=== PATIENT | female | born 1965 | race Caucasian/White ===

== ENCOUNTER 2019-06-07 07:27 | Outpatient (CLI) | payer OTHER, SELFPAY ==
[2019-06-07 07:58] LABS: Add Urine Microscopic? NO; Appearance Urine Clear (Clear); Bilirubin Urine Negative (Negative); Blood Urine Negative (Negative); Color Urine Straw (Yellow); Glucose Urine UA Negative (Negative); Ketones Urine Negative (Negative); Leukocyte Esterase Ur Negative LEU/UL (NEGATIVE); Nitrate Urine Negative (Negative); Protein Urine Negative (Negative); Specific Grav Ur 1.014 (1.001-1.035); Urobilinogen Urine Negative mg/dL (<2.0)
[2019-06-07 08:08] LABS: Alanine Aminotransferase 23 U/L (4-35); Albumin Level 4.3 g/dL (3.5-5.1); Alkaline Phosphatase 33 U/L (38-126); Aspartate Amino Transferase 21 U/L (14-36); Bilirubin,Total 0.3 mg/dL (0.2-1.3); Blood Urea Nitrogen 14 mg/dL (7-17); Calcium 9.4 mg/dL (8.4-10.2); Carbon Dioxide 28 mmol/L (22-30); Chloride 104 mmol/L (98-107); Estimated Glomerular Filt Rate > 60; Glucose 102 mg/dL (65-105); Potassium 4.8 mmol/L (3.4-5.0); Sodium 140 mmol/L (137-145)
[2019-06-07 08:17] LABS: Hemoglobin A1C 5.8 % (<5.7)
== END 2019-06-07 07:28 | disposition home or self-care (01) ==
PROVIDERS: PCP Family Medicine; Visit Provider Physician Assistant
DX: E11.9 Type 2 diabetes mellitus without complications (principal); I10 Essential (primary) hypertension
CPT/HCPCS: 36415; 80053; 81003; 83036

== ENCOUNTER 2019-09-08 07:30 | Outpatient (CLI) | payer OTHER, SELFPAY ==
[2019-09-08 08:36] LABS: Alanine Aminotransferase 21 U/L (4-35); Albumin Level 4.6 g/dL (3.5-5.1); Alkaline Phosphatase 39 U/L (38-126); Aspartate Amino Transferase 23 U/L (14-36); Bilirubin,Total 0.5 mg/dL (0.2-1.3); Blood Urea Nitrogen 17 mg/dL (7-17); Calcium 9.8 mg/dL (8.4-10.2); Carbon Dioxide 30 mmol/L (22-30); Chloride 106 mmol/L (98-107); Estimated Glomerular Filt Rate > 60; Glucose 111 mg/dL (65-105); Potassium 5.2 mmol/L (3.4-5.0); Sodium 143 mmol/L (137-145)
[2019-09-08 08:38] LABS: Hemoglobin A1C 6.2 % (<5.7)
== END 2019-09-08 07:31 | disposition home or self-care (01) ==
PROVIDERS: PCP Family Medicine; Visit Provider Physician Assistant
DX: E11.9 Type 2 diabetes mellitus without complications (principal)
CPT/HCPCS: 36415; 80053; 83036

== ENCOUNTER 2019-12-14 07:48 | Outpatient (CLI) | payer OTHER, SELFPAY ==
[2019-12-14 08:29] LABS: Alanine Aminotransferase 24 U/L (4-35); Albumin Level 4.2 g/dL (3.5-5.1); Alkaline Phosphatase 33 U/L (38-126); Anion Gap 7 mmol/L (8-16); Aspartate Amino Transferase 22 U/L (14-36); Bilirubin,Total 0.5 mg/dL (0.2-1.3); Blood Urea Nitrogen 15 mg/dL (7-17); Calcium 9.5 mg/dL (8.4-10.2); Carbon Dioxide 29 mmol/L (22-30); Chloride 106 mmol/L (98-107); Estimated Glomerular Filt Rate > 60; Glucose 117 mg/dL (65-105); Potassium 4.4 mmol/L (3.4-5.0); Sodium 142 mmol/L (137-145)
== END 2019-12-14 07:49 | disposition home or self-care (01) ==
PROVIDERS: PCP Family Medicine; Visit Provider Physician Assistant
DX: E11.9 Type 2 diabetes mellitus without complications (principal)
CPT/HCPCS: 36415; 80053; 83036

== ENCOUNTER 2020-05-09 08:48 | Outpatient (CLI) | payer OTHER, SELFPAY ==
[2020-05-09 09:08] LABS: Hematocrit 37.8 % (37.0-47.0); Hemoglobin 12.2 g/dL (12.0-15.0); Mean Corpuscular HGB Conc 32.3 g/dl (32-36); Mean Corpuscular Hemoglobin 29.1 pg (26-34); Mean Corpuscular Volume 90.2 fl (80-100); Platelet Count Result 284 k/mm3 (150-375); Red Blood Count 4.19 M/mm3 (4.2-5.4); Red Cell Distribution Width 13.6 % (11.5-14.5); White Blood Count 5.1 K/mm3 (4.5-10.0)
[2020-05-09 09:14] LABS: Add Urine Microscopic? YES; Appearance Urine Cloudy (Clear); Bilirubin Urine Negative (Negative); Blood Urine Negative (Negative); Color Urine Yellow (Yellow); Glucose Urine UA Negative (Negative); Ketones Urine Negative (Negative); Leukocyte Esterase Ur Negative LEU/UL (NEGATIVE); Mucus Urine Rare /lpf; Nitrate Urine Negative (Negative); Protein Urine Negative (Negative); RBC Urine 0-2 /hpf (0-2); Specific Grav Ur 1.017 (1.001-1.035); Squamous Epithelial Cell Urine Many /hpf (Few); Urobilinogen Urine Negative mg/dL (<2.0); WBC Urine 0-3 /hpf (0-3)
[2020-05-09 09:24] LABS: Alanine Aminotransferase 15 U/L (4-35); Alkaline Phosphatase 27 U/L (38-126); Anion Gap 7 mmol/L (8-16); Aspartate Amino Transferase 21 U/L (14-36); Bilirubin,Total 0.4 mg/dL (0.2-1.3); Blood Urea Nitrogen 12 mg/dL (7-17); Calcium 8.7 mg/dL (8.4-10.2); Carbon Dioxide 28 mmol/L (22-30); Chloride 109 mmol/L (98-107); Cholesterol 114 mg/dL (0-200); Estimated Glomerular Filt Rate > 60; Glucose 115 mg/dL (65-105); HDL Direct 41 mg/dL; Sodium 144 mmol/L (137-145); Triglycerides 66 mg/dL (<150)
[2020-05-09 09:35] LABS: LDL Cholesterol Direct 52 mg/dL
[2020-05-09 10:03] LABS: Creatinine Urine 148.1 mg/dL
[2020-05-09 10:08] LABS: MALB Creatinine Ratio 5.3 mg/g (0-30); Microalbumin Urine Random 7.9 mg/L (0-16.7)
== END 2020-05-09 08:49 | disposition home or self-care (01) ==
PROVIDERS: PCP Family Medicine; Visit Provider Family Medicine
DX: E11.9 Type 2 diabetes mellitus without complications (principal); I10 Essential (primary) hypertension; E78.2 Mixed hyperlipidemia; I25.10 Atherosclerotic heart disease of native coronary artery without angina pectoris
CPT/HCPCS: 36415; 80053; 80061; 81001; 82043; 83036; 84443; 85027

== ENCOUNTER 2020-09-06 09:37 | Outpatient (CLI) | payer OTHER, SELFPAY ==
[2020-09-06 10:18] LABS: Alanine Aminotransferase 27 U/L (4-35); Albumin Level 4.4 g/dL (3.5-5.1); Alkaline Phosphatase 36 U/L (38-126); Anion Gap 8 mmol/L (8-16); Aspartate Amino Transferase 32 U/L (14-36); Bilirubin,Total 0.4 mg/dL (0.2-1.3); Blood Urea Nitrogen 13 mg/dL (7-17); Calcium 9.7 mg/dL (8.4-10.2); Carbon Dioxide 29 mmol/L (22-30); Chloride 107 mmol/L (98-107); Estimated Glomerular Filt Rate > 60; Glucose 119 mg/dL (65-105); Potassium 5.1 mmol/L (3.4-5.0); Sodium 144 mmol/L (137-145)
[2020-09-06 11:55] LABS: Hemoglobin A1C 6.4 % (<5.7)
== END 2020-09-06 09:38 | disposition home or self-care (01) ==
LOC: ANHLAB 09:41
PROVIDERS: PCP Family Medicine; Visit Provider Family Medicine
DX: E11.9 Type 2 diabetes mellitus without complications (principal)
CPT/HCPCS: 36415; 80053; 83036

== ENCOUNTER 2021-01-06 07:35 | Outpatient (CLI) | payer OTHER, SELFPAY ==
[2021-01-06 08:15] LABS: Alanine Aminotransferase 21 U/L (4-35); Albumin Level 4.3 g/dL (3.5-5.1); Alkaline Phosphatase 36 U/L (38-126); Anion Gap 7 mmol/L (8-16); Aspartate Amino Transferase 22 U/L (14-36); Bilirubin,Total 0.5 mg/dL (0.2-1.3); Blood Urea Nitrogen 12 mg/dL (7-17); Calcium 9.5 mg/dL (8.4-10.2); Carbon Dioxide 28 mmol/L (22-30); Chloride 105 mmol/L (98-107); Estimated Glomerular Filt Rate > 60; Glucose 130 mg/dL (65-110); Potassium 4.4 mmol/L (3.4-5.0); Sodium 140 mmol/L (137-145)
[2021-01-06 08:40] LABS: Hemoglobin A1C 6.5 % (<5.7)
== END 2021-01-06 07:36 | disposition home or self-care (01) ==
LOC: ANHLAB 07:37
PROVIDERS: PCP Family Medicine; Visit Provider Family Medicine
DX: E11.9 Type 2 diabetes mellitus without complications (principal)
CPT/HCPCS: 36415; 80053; 83036

== ENCOUNTER 2021-05-06 07:36 | Outpatient (CLI) | payer OTHER, SELFPAY ==
[2021-05-06 08:05] LABS: Add Urine Microscopic? NO; Appearance Urine Clear (Clear); Bilirubin Urine Negative (Negative); Blood Urine Negative (Negative); Color Urine Yellow (Yellow); Glucose Urine UA Negative (Negative); Ketones Urine Negative (Negative); Leukocyte Esterase Ur Negative LEU/UL (NEGATIVE); Nitrate Urine Negative (Negative); Protein Urine Negative (Negative); Specific Grav Ur 1.016 (1.001-1.035); Urobilinogen Urine Negative mg/dL (<2.0)
[2021-05-06 08:29] LABS: Hematocrit 38.6 % (37.0-47.0); Hemoglobin 12.5 g/dL (12.0-15.0); Mean Corpuscular HGB Conc 32.4 g/dl (32-36); Mean Corpuscular Hemoglobin 29.6 pg (26-34); Mean Corpuscular Volume 91.5 fl (80-100); Mean Platelet Volume 10.4 fl (7.4-10.4); Platelet Count Result 294 k/mm3 (150-375); Red Blood Count 4.22 M/mm3 (4.2-5.4); Red Cell Distribution Width 14.7 % (11.5-14.5); White Blood Count 7.1 K/mm3 (4.5-10.0)
[2021-05-06 08:29] LABS: Creatinine Urine 116.7 mg/dL
[2021-05-06 08:34] LABS: MALB Creatinine Ratio 6.3 mg/g (0-30); Microalbumin Urine Random 7.4 mg/L (0-16.7)
[2021-05-06 08:37] LABS: Alanine Aminotransferase 19 U/L (4-35); Albumin Level 4.4 g/dL (3.5-5.1); Alkaline Phosphatase 35 U/L (38-126); Anion Gap 8 mmol/L (8-16); Aspartate Amino Transferase 25 U/L (14-36); Bilirubin,Total 0.6 mg/dL (0.2-1.3); Blood Urea Nitrogen 11 mg/dL (7-17); Calcium 9.1 mg/dL (8.4-10.2); Carbon Dioxide 26 mmol/L (22-30); Chloride 106 mmol/L (98-107); Cholesterol 120 mg/dL (0-200); Estimated Glomerular Filt Rate > 60; Glucose 138 mg/dL (65-110); HDL Direct 43 mg/dL; Sodium 140 mmol/L (137-145); Triglycerides 61 mg/dL (<150)
[2021-05-06 08:39] LABS: Hemoglobin A1C 6.6 % (<5.7)
[2021-05-06 08:47] LABS: LDL Cholesterol Direct 60 mg/dL
== END 2021-05-06 07:37 | disposition home or self-care (01) ==
LOC: ANHLAB 07:37
PROVIDERS: PCP Family Medicine; Visit Provider Family Medicine
DX: E11.9 Type 2 diabetes mellitus without complications (principal); E78.5 Hyperlipidemia, unspecified; I11.9 Hypertensive heart disease without heart failure; I25.10 Atherosclerotic heart disease of native coronary artery without angina pectoris
CPT/HCPCS: 36415; 80053; 80061; 81003; 82043; 83036; 84443; 85027

== ENCOUNTER 2021-09-18 07:38 | Outpatient (CLI) | payer OTHER, SELFPAY ==
[2021-09-18 08:32] LABS: Hemoglobin A1C 6.6 % (<5.7)
[2021-09-18 08:49] LABS: Alanine Aminotransferase 24 U/L (6-35); Albumin Level 4.4 g/dL (3.5-5.1); Alkaline Phosphatase 46 U/L (38-126); Anion Gap 5 mmol/L (8-16); Aspartate Amino Transferase 23 U/L (14-36); Bilirubin,Total 0.3 mg/dL (0.2-1.3); Blood Urea Nitrogen 14 mg/dL (7-17); Calcium 9.1 mg/dL (8.4-10.2); Carbon Dioxide 27 mmol/L (22-30); Chloride 108 mmol/L (98-107); Estimated Glomerular Filt Rate > 60; Glucose 134 mg/dL (65-110); Sodium 140 mmol/L (137-145)
== END 2021-09-18 07:39 | disposition home or self-care (01) ==
LOC: ANHLAB 07:41
PROVIDERS: PCP Family Medicine; Visit Provider Family Medicine
DX: E11.9 Type 2 diabetes mellitus without complications (principal)
CPT/HCPCS: 36415; 80053; 83036

== ENCOUNTER 2022-02-24 07:23 | Outpatient (CLI) | payer OTHER, SELFPAY ==
[2022-02-24 07:58] LABS: Alanine Aminotransferase 38 U/L (6-35); Albumin Level 4.6 g/dL (3.5-5.1); Alkaline Phosphatase 44 U/L (38-126); Anion Gap 8 mmol/L (8-16); Aspartate Amino Transferase 34 U/L (14-36); Bilirubin,Total 0.5 mg/dL (0.2-1.3); Blood Urea Nitrogen 11 mg/dL (7-17); Calcium 9.4 mg/dL (8.4-10.2); Carbon Dioxide 29 mmol/L (22-30); Chloride 104 mmol/L (98-107); Estimated Glomerular Filt Rate > 60; Glucose 144 mg/dL (65-110); Potassium 4.6 mmol/L (3.4-5.0); Sodium 141 mmol/L (137-145)
[2022-02-24 08:00] LABS: Hemoglobin A1C 7.1 % (<5.7)
== END 2022-02-24 07:24 | disposition home or self-care (01) ==
LOC: ANHLAB 07:28
PROVIDERS: PCP Family Medicine; Visit Provider Family Medicine
DX: E11.9 Type 2 diabetes mellitus without complications (principal); I25.10 Atherosclerotic heart disease of native coronary artery without angina pectoris; I11.9 Hypertensive heart disease without heart failure
CPT/HCPCS: 36415; 80053; 83036

== ENCOUNTER 2022-07-21 06:46 | Outpatient (CLI) | payer MEDICARE, SELFPAY ==
[2022-07-21 07:33] LABS: Hematocrit 39.1 % (37.0-47.0); Hemoglobin 12.5 g/dL (12.0-15.0); Mean Corpuscular Hemoglobin 28.8 pg (26-34); Mean Corpuscular Volume 90.1 fl (80-100); Mean Platelet Volume 10.3 fl (7.4-10.4); Platelet Count Result 308 k/mm3 (150-375); Red Blood Count 4.34 M/mm3 (4.2-5.4); Red Cell Distribution Width 13.9 % (11.5-14.5); White Blood Count 6.5 K/mm3 (4.5-10.0)
[2022-07-21 07:44] LABS: Appearance Urine Cloudy (Clear); Bacteria Urine None Seen /hpf; Bilirubin Urine Negative (Negative); Blood Urine Negative (Negative); Color Urine Yellow (Yellow); Glucose Urine UA Negative (Negative); Ketones Urine Negative (Negative); Leukocyte Esterase Ur Negative LEU/UL (NEGATIVE); Nitrate Urine Negative (Negative); Non Pathogenic Casts 0-2; Protein Urine Negative (Negative); RBC Urine 0-2 /hpf (0-2); Specific Grav Ur 1.016 (1.001-1.035); Squamous Epithelial Cell Urine Moderate /hpf (Few); Urobilinogen Urine 0.2 mg/dL (<2.0); WBC Urine 0-5 /hpf (0-3); pH Urine 5.5 (5.0-9.0)
[2022-07-21 07:58] LABS: Alanine Aminotransferase 35 U/L (6-35); Albumin Level 4.5 g/dL (3.5-5.1); Alkaline Phosphatase 38 U/L (38-126); Anion Gap 8 mmol/L (8-16); Aspartate Amino Transferase 27 U/L (14-36); Bilirubin,Total 0.5 mg/dL (0.2-1.3); Blood Urea Nitrogen 10 mg/dL (7-17); Calcium 9.3 mg/dL (8.4-10.2); Carbon Dioxide 27 mmol/L (22-30); Chloride 102 mmol/L (98-107); Cholesterol 134 mg/dL (0-200); Estimated Glomerular Filt Rate > 60; Glucose 119 mg/dL (65-110); HDL Direct 46 mg/dL; Potassium 3.9 mmol/L (3.4-5.0); Sodium 137 mmol/L (137-145); Triglycerides 80 mg/dL (<150)
[2022-07-21 07:59] LABS: Add Urine Microscopic? YES
[2022-07-21 08:07] LABS: Creatinine Urine 123.5 mg/dL
[2022-07-21 08:09] LABS: LDL Cholesterol Direct 63 mg/dL
[2022-07-21 08:10] LABS: MALB Creatinine Ratio 12.6 mg/g (0-30); Microalbumin Urine Random 15.6 mg/L (0-16.7)
[2022-07-21 08:15] LABS: Hemoglobin A1C 6.3 % (<5.7)
== END 2022-07-21 06:47 | disposition home or self-care (01) ==
PROVIDERS: PCP Family Medicine; Visit Provider Family Medicine
DX: R53.83 Other fatigue (principal); E78.5 Hyperlipidemia, unspecified; I10 Essential (primary) hypertension; E11.9 Type 2 diabetes mellitus without complications
CPT/HCPCS: 36415; 80053; 80061; 81001; 82043; 83036; 84443; 85027

== ENCOUNTER 2022-12-09 06:59 | Outpatient (CLI) | payer MEDICARE, SELFPAY ==
[2022-12-09 08:09] LABS: Alanine Aminotransferase 23 U/L (6-35); Albumin Level 4.4 g/dL (3.5-5.1); Alkaline Phosphatase 39 U/L (38-126); Anion Gap 9 mmol/L (8-16); Aspartate Amino Transferase 25 U/L (14-36); Bilirubin,Total 0.6 mg/dL (0.2-1.3); Blood Urea Nitrogen 14 mg/dL (7-17); Calcium 9.2 mg/dL (8.4-10.2); Carbon Dioxide 27 mmol/L (22-30); Chloride 101 mmol/L (98-107); Estimated Glomerular Filt Rate > 60; Glucose 126 mg/dL (65-110); Potassium 4.4 mmol/L (3.4-5.0); Sodium 137 mmol/L (137-145)
[2022-12-09 08:15] LABS: Hemoglobin A1C 6.4 % (<5.7)
== END 2022-12-09 07:00 | disposition home or self-care (01) ==
LOC: ANHLAB 07:00
PROVIDERS: PCP Family Medicine; Visit Provider Family Medicine
DX: E11.9 Type 2 diabetes mellitus without complications (principal)
CPT/HCPCS: 36415; 80053; 83036

== ENCOUNTER 2023-04-20 06:56 | Outpatient (CLI) | payer MEDICARE, MEDICAID, SELFPAY ==
[2023-04-20 07:50] LABS: Alanine Aminotransferase 24 U/L (6-35); Albumin Level 4.3 g/dL (3.5-5.1); Alkaline Phosphatase 43 U/L (38-126); Anion Gap 7 mmol/L (8-16); Aspartate Amino Transferase 26 U/L (14-36); Bilirubin,Total 0.5 mg/dL (0.2-1.3); Blood Urea Nitrogen 12 mg/dL (7-17); Calcium 9.8 mg/dL (8.4-10.2); Carbon Dioxide 26 mmol/L (22-30); Chloride 101 mmol/L (98-107); Estimated Glomerular Filt Rate > 60; Glucose 130 mg/dL (65-110); Potassium 4.4 mmol/L (3.4-5.0); Sodium 134 mmol/L (137-145)
[2023-04-20 07:55] LABS: Hemoglobin A1C 6.7 % (<5.7)
== END 2023-04-20 06:57 | disposition home or self-care (01) ==
LOC: ANHLAB 06:59
PROVIDERS: PCP Family Medicine; Visit Provider Family Medicine
DX: E11.9 Type 2 diabetes mellitus without complications (principal)
CPT/HCPCS: 36415; 80053; 83036

== ENCOUNTER 2023-08-12 07:07 | Outpatient (CLI) | payer MEDICARE, MEDICAID, SELFPAY ==
[2023-08-12 07:58] LABS: Hematocrit 36.3 % (37.0-47.0); Hemoglobin 11.6 g/dL (12.0-15.0); Mean Corpuscular Hemoglobin 28.9 pg (26-34); Mean Corpuscular Volume 90.3 fl (80-100); Mean Platelet Volume 9.2 fl (7.4-10.4); Platelet Count Result 359 k/mm3 (150-375); Red Blood Count 4.02 M/mm3 (4.2-5.4); Red Cell Distribution Width 14.2 % (11.5-14.5); White Blood Count 6.6 K/mm3 (4.5-10.0)
[2023-08-12 08:13] LABS: Alanine Aminotransferase 18 U/L (6-35); Albumin Level 4.4 g/dL (3.5-5.1); Alkaline Phosphatase 39 U/L (38-126); Anion Gap 8 mmol/L (4-12); Aspartate Amino Transferase 20 U/L (14-36); Bilirubin,Total 0.6 mg/dL (0.2-1.3); Blood Urea Nitrogen 14 mg/dL (7-17); Calcium 9.4 mg/dL (8.4-10.2); Carbon Dioxide 23 mmol/L (22-30); Chloride 101 mmol/L (98-107); Cholesterol 156 mg/dL (0-200); Estimated Glomerular Filt Rate > 60; Glucose 123 mg/dL (65-110); HDL Direct 53 mg/dL; Potassium 4.3 mmol/L (3.4-5.0); Sodium 132 mmol/L (137-145); Triglycerides 100 mg/dL (<150)
[2023-08-12 08:14] LABS: Appearance Urine Clear (Clear); Bilirubin Urine Negative (Negative); Blood Urine Negative (Negative); Color Urine Yellow (Yellow); Glucose Urine UA Negative (Negative); Ketones Urine Negative (Negative); Leukocyte Esterase Ur Negative LEU/UL (Negative); Nitrate Urine Negative (Negative); Protein Urine Negative (Negative); Specific Grav Ur 1.023 (1.001-1.035); Urobilinogen Urine 0.2 mg/dL (<2.0); pH Urine 5.5 (5.0-9.0)
[2023-08-12 08:17] LABS: Rheumatoid Factor < 12.0 IU/ML (<12)
[2023-08-12 08:19] LABS: Add Urine Microscopic? NO
[2023-08-12 08:24] LABS: LDL Cholesterol Direct 79 mg/dL
[2023-08-12 08:34] LABS: Hemoglobin A1C 6.1 % (<5.7)
[2023-08-12 12:20] LABS: Creatinine Urine 112.6 mg/dL
[2023-08-12 12:34] LABS: MALB Creatinine Ratio 5.8 mg/g (0-30); Microalbumin Urine Random 6.5 mg/L (0-16.7)
[2023-08-13 14:42] LABS: Anti Cyclic Citrullinated Pept <16 UNITS
== END 2023-08-12 07:08 | disposition home or self-care (01) ==
LOC: ANHLAB 07:13
PROVIDERS: PCP Family Medicine; Visit Provider Family Medicine
DX: I11.9 Hypertensive heart disease without heart failure (principal); E78.5 Hyperlipidemia, unspecified; M25.50 Pain in unspecified joint; E11.9 Type 2 diabetes mellitus without complications
CPT/HCPCS: 36415; 80053; 80061; 81003; 82043; 83036; 84443; 85027; 86200; 86430

== ENCOUNTER 2023-12-28 07:00 | Outpatient (CLI) | payer MEDICARE, MEDICAID, SELFPAY ==
[2023-12-28 07:39] LABS: Anion Gap 9 mmol/L (4-12); Blood Urea Nitrogen 15 mg/dL (7-17); Carbon Dioxide 27 mmol/L (22-30); Chloride 98 mmol/L (98-107); Potassium 4.6 mmol/L (3.4-5.0); Sodium 134 mmol/L (137-145)
[2023-12-28 07:40] LABS: Alanine Aminotransferase 20 U/L (6-35); Albumin Level 4.6 g/dL (3.5-5.1); Alkaline Phosphatase 36 U/L (38-126); Aspartate Amino Transferase 25 U/L (14-36); Bilirubin,Total 0.6 mg/dL (0.2-1.3); Calcium 9.6 mg/dL (8.4-10.2); Estimated Glomerular Filt Rate > 60; Glucose 131 mg/dL (65-110)
[2023-12-28 07:50] LABS: Hemoglobin A1C 6.7 % (<5.7)
== END 2023-12-28 07:01 | disposition home or self-care (01) ==
PROVIDERS: PCP Family Medicine; Visit Provider Family Medicine
DX: E11.9 Type 2 diabetes mellitus without complications (principal)
CPT/HCPCS: 36415; 80053; 83036

== ENCOUNTER 2024-06-19 06:57 | Outpatient (CLI) | payer OTHER, SELFPAY ==
--- OUTSIDE RECORDS SUMMARY | 2024-06-19 07:00 | XMS_ITS | CONTINUITY OF CARE DOCUMENT ---
Author Name qamar foote Address Unknown Organization [facility] Address [address] [place] [address] Phone [phone] Care Team Providers Care Melt Helper Name Role Phone Abbie MURRAY, Roselia Pierson Unavailable TRACEY GRACE MD Unavailable [phone] TRACEY GRACE MD Unavailable [phone] PROBLEMS Condition Status Date Provider Notes Coronary artery disease active Roselia banda MD Congestive Heart Failure active ? Roselia sen MD Coronary Heart Disease active ? Roselia grider MD Hypertension active ? Roselia Leiva MD Myocardial Infarction active ? Roselia cesar MD (History of) Cardiovascular Condition Screening active Socrates Leiva MD DM - type 2 active Roselia Leiva MD Statin Intolerant active Lobito Kaye Cardiology examination active Roselia grider MD Sleep disorder active Roselia Leiva MD ENCOUNTERS Date Type Provider Location Encounter Diag nosis - In-person encounter Office Visit Roselia Leiva MD [facility] Cardiology examinationSleep disorder - In-person encounter Office Visit Roselia Leiva MD [facility] Statin Intolerant - In-person encounter Office Visit Roselia Leiva MD [facility] - In-person encounter Office Visit Roselia Leiva MD [facility] - In-person encounter Office Visit Roselia Leiva MD [facility] - In-person encounter Office Visit Roselia Leiva MD [facility] - In-person encounter Office Visit Roselia Leiva MD [facility] - In-person encounter Office Visit Roselia Leiva MD [facility] - In-person encounter Office Visit Roselia Leiva MD [facility] - In-person encounter Office Visit Roselia Leiva MD [facility] - In-person encounter Office Visit Roselia Leiva MD [facility] Cardiovascular Condition ScreeningDM - type 2 - In-person encounter Office Visit Roselia Leiva MD [facility] - In-person encounter Office Visit Roselia Leiva MD [facility] Coronary artery diseaseCongestive Heart FailureCoronary Heart DiseaseHypertensionMyocardial Infarction VITAL SIGNS Date Observation Value Provider Body Mass Index (Ratio) 34.76 kg/m2 Holley Leiva MD blood pressure, diastolic 88 mm[Hg] Lluvia nkLog blood pressure, systolic 138 mm[Hg] Betty kLogsrikanth blood pressure, cuff size large Jose F ivorycarol ann Herrera blood pressure, diastolic 88 mm[Hg] Jose F whitmore Javier blood pressure, systolic 138 mm[Hg] Nitish javierlenin Herrera oxygen saturation, oximetry 98 % Komallenin Herrera respiratory rate E&M 12 /min Komallenin Herrera pulse rate 77 /min Komallenin Herrera weight E&M 215.4 [lb_av] Komallenin Herrera height E&M 66 [in_i] Komallenin Herrera Body Mass Index (Ratio) 34.70 kg/m2 Holley Leiva MD blood pressure, diastolic 98 mm[Hg] Lluvia nkLog blood pressure, systolic 161 mm[Hg] Betty kLogic blood pressure, cuff size regular Fa [facility] blood pressure, diastolic 98 mm[Hg] [facility] blood pressure, systolic 161 mm[Hg] [facility] 83 /min [facility] oxygen saturation, oximetry 98 % [facility] respiratory rate E&M 18 /min [facility] weight E&M 215 [lb_av] [facility] height E&M 66 [in_i] [facility] Body Mass Index (Ratio) 34.54 kg/m2 Nona trini Puhse blood pressure, cuff size regular Ke rri Gruenenfelder blood pressure, diastolic 100 mm[Hg] Ke rri Gruenenfelder blood pressure, systolic 168 mm[Hg] Ker ri Justinuemickinfrebeca oxygen saturation, oximetry 98 % Bridgette Jeannine respiratory rate E&M 12 /min Bridgette G sandieenechalo pulse rate 87 /min Bridgette Grmarynfe lder weight E&M 214 [lb_av] Bridgette Gruenenfe lder height E&M 66 [in_i] Bridgette Gruenenfe lder Body Mass Index (Ratio) 35.99 kg/m2 Holley Leiva MD blood pressure, cuff size regular Ke rri Gruenenfelder blood pressure, diastolic 110 mm[Hg] Ke rri Gruenenfelder blood pressure, systolic 180 mm[Hg] Ker ri Justinuenenfelder oxygen saturation, oximetry 98 % Bridgette Grlatanenfelder respiratory rate E&M 12 /min Bridgette G ruenenfelder pulse rate 78 /min Bridgette Harpreetnenfe lder weight E&M 223 [lb_av] Bridgette Gruenenfe lder height E&M 66 [in_i] Bridgette Justinuenenfe lder Body Mass Index (Ratio) 36.47 kg/m2 Holley Leiva MD blood pressure, cuff size large Ke rri Gruenenfelder blood pressure, diastolic 80 mm[Hg] Ke rri Gruenenfelder blood pressure, systolic 134 mm[Hg] Pilar ri Grlatanenfelder oxygen saturation, oximetry 98 % Bridgette Jenniferelder respiratory rate E&M 16 /min Bridgette Cisse sandieenenfelder pulse rate 80 /min Bridgette Mullinsnenfe lder weight E&M 226 [lb_av] Bridgette Rodrigueze lder height E&M 66 [in_i] Bridgette Robertnfe lder Body Mass Index (Ratio) 36.96 kg/m2 Holley Leiva MD blood pressure, diastolic 75 mm[Hg] Li nkLogic blood pressure, systolic 132 mm[Hg] Betty kLogic blood pressure, diastolic 75 mm[Hg] Sa ra Preston blood pressure, systolic 132 mm[Hg] Holden a Preston respiratory rate E&M 18 /min Flora Si ms oxygen saturation, oximetry 98 % Flora Preston weight E&M 229 [lb_av] Flora Preston blood pressure, cuff size regular Sa ra Preston height E&M 66 [in_i] Flora Pooles Body Mass Index (Ratio) 35.51 kg/m2 Holley Leiva MD blood pressure, diastolic 71 mm[Hg] Li nkLogic blood pressure, systolic 128 mm[Hg] Betty kLogsrikanth blood pressure, diastolic 71 mm[Hg] Rh onda Shabnam blood pressure, systolic 128 mm[Hg] Rho nda Shabnam oxygen saturation, oximetry 98 % Cassandrahanny Haque pulse rate 74 /min Cassandralenin Haque blood pressure, resting Yes Draken mayco Haque blood pressure, cuff size regular Az onmayco Shabnam respiratory rate E&M 18 /min Cassandralenin Haque weight E&M 220 [lb_av] Cassandralenin Haque height E&M 66 [in_i] Cassandralenin Haque Body Mass Index (Ratio) 34.21 kg/m2 Holley Leiva MD blood pressure, resting Yes Luis Albertocarolann myers [place] blood pressure, cuff size regular Kr isty [place] blood pressure, diastolic 80 mm[Hg] Kr isty Bj blood pressure, systolic 124 mm[Hg] Kri sty Bj respiratory rate E&M 19 /min Lubna [place] pulse rate 84 /min Lubna Bj oxygen saturation, oximetry 97 % Lub[place] weight E&M 212 [lb_av] Lubna Bj height E&M 66 [in_i] Lubna Bj Body Mass Index (Ratio) 31.47 kg/m2 Holley Leiva MD blood pressure, diastolic 87 mm[Hg] To nsha Henry blood pressure, systolic 132 mm[Hg] Ton gabriel Figueroa oxygen saturation, oximetry 98 % Tonsha Figueroa respiratory rate E&M 18 /min [facility] pulse rate 70 /min [facility] weight E&M 195 [lb_av] [facility] height E&M 66 [in_i] [facility] temperature site temporal [facility] temperature E&M 97.3 [degF] Elisabuzz pacheco Body Mass Index (Ratio) 30.66 kg/m2 Holley Leiva MD blood pressure, diastolic 70 mm[Hg] Brayan audrey Cole blood pressure, systolic 118 mm[Hg] Eileen risa Cole oxygen saturation, oximetry 98 % Justineaudrey Cole pulse rate 71 /min Justineaudrey Lema weight E&M 190 [lb_av] Justineaudrey Lema height E&M 66 [in_i] Justine Gaby Lema Body Mass Index (Ratio) 33.25 kg/m2 Gato Plurad blood pressure, diastolic 80 mm[Hg] Ki fredamy Lizama blood pressure, systolic 120 mm[Hg] Nikki lee Lizama oxygen saturation, oximetry 98 % Cristhian Lizama respiratory rate E&M 16 /min Austin Lizama pulse rate 84 /min Cristhian Lizama weight E&M 206 [lb_av] Cristhian Lizama height E&M 66 [in_i] Austin Lizama Body Mass Index (Ratio) 34.05 kg/m2 Gato Plurad blood pressure, resting Yes Gabriela Matos oxygen saturation, oximetry 98 % Araseli Matos respiratory rate E&M 18 /min Sumanth Matos pulse rate 80 /min Araseli hawthorne weight E&M 211 [lb_av] Araseli Morales nson height E&M 66 [in_i] Araseli hawthorne ALLERGIES Allergy Name Onset Date Reaction Criticality Status PENICILLIN High Criticality active RESULTS Date Observation Value Provider Reference Range Interpretation Location 2 hemoglobin A1C, blood, as % of total hemoglobin 5.9 % [facility] 4.8-5.6 High 2 lipoprotein, beta, serum, point, quantitative, calculated 56 mg/dL [facility] 0-99 2 very low density lipoproteins 12 mg/dL [facility] 5-40 2 HDL cholesterol, serum 43 mg/dL [facility] >39 2 triglyceride, serum, random 62 mg/dL [facility] 0-149 2 cholesterol, serum 111 mg/dL [facility] [phone]/10/1 2 alanine aminotransferase (SGPT), serum 30 1/L [facility] 0-32 2 aspartate aminotransferase (SGOT), serum 20 1/L [facility] 0-40 2 alkaline phosphatase, serum 57 1/L [facility] 39-117 2 bilirubin, serum, total 0.3 mg/dL [facility] 0.0-1.2 2 albumin/globulin ratio, serum 1.6 [facility] 1.2-2.2 2 globulin, serum 2.6 [facility] 1.5-4.5 2 albumin, serum 4.2 g/dL [facility] 3.5-5.5 2 protein, total, serum 6.8 g/dL [facility] 6.0-8.5 2 calcium, serum 9.6 mg/dL [facility] 8.7-10.2 2 carbon dioxide, venous blood 25 mmol/L [facility] 20-29 2 chloride, serum 102 mmol/L [facility] 96-106 2 potassium, serum 4.4 mmol/L [facility] 3.5-5.2 2 sodium, serum 140 mmol/L [facility] 109-575 9986/10/1 2 urea nitrogen/creatinine ratio, serum 16 [facility] 9-23 2 eGFR if 118 mL/min/{1 .73_m2} [facility] >59 2 eGFR if not 102 mL/min/{1 .73_m2} [facility] >59 2 creatinine, serum 0.64 mg/dL [facility] 0.57-1.00 2 urea nitrogen, blood 10 mg/dL [facility] 6-24 2 blood glucose, random 148 mg/dL [facility] 65-99 High 5 pro brain natriuretic peptide 362 pg/mL [facility] 0-249 High 5 microalbumin/creatin ine ratio, urine <4.2 mg/g creat [facility] 0.0-30.0 5 microalbumin, random, urine <3.0 ug/mL [facility] Not Estab. 5 creatinine, random, urine 71.5 mg/dL [facility] Not Estab. 5 B-type natriuretic peptide 55.9 pg/mL [facility] 0.0-100.0 5 hemoglobin A1C, blood, as % of total hemoglobin 10.7 % [facility] 4.8-5.6 High 5 lipoprotein, beta, serum, point, quantitative, calculated 60 mg/dL [facility] 0-99 5 very low density lipoproteins 18 mg/dL [facility] 5-40 5 HDL cholesterol, serum 38 mg/dL [facility] >39 Low 5 triglyceride, serum, random 92 mg/dL [facility] 0-149 5 cholesterol, serum 116 mg/dL [facility] [phone]/01/0 5 alanine aminotransferase (SGPT), serum 22 1/L [facility] 0-32 5 aspartate aminotransferase (SGOT), serum 15 1/L [facility] 0-40 5 alkaline phosphatase, serum 41 1/L [facility] 39-117 5 bilirubin, serum, total 0.3 mg/dL [facility] 0.0-1.2 5 albumin/globulin ratio, serum 1.3 [facility] 1.2-2.2 5 globulin, serum 3.3 [facility] 1.5-4.5 5 albumin, serum 4.2 g/dL [facility] 3.5-5.5 5 protein, total, serum 7.5 g/dL [facility] 6.0-8.5 5 calcium, serum 10.2 mg/dL [facility] 8.7-10.2 5 carbon dioxide, venous blood 21 mmol/L [facility] 20-29 5 chloride, serum 100 mmol/L [facility] 96-106 5 potassium, serum 5.2 mmol/L [facility] 3.5-5.2 5 sodium, serum 138 mmol/L [facility] [phone]/01/0 5 urea nitrogen/creatinine ratio, serum 18 [facility] 9-23 5 eGFR if 115 mL/min/{1 .73_m2} [facility] >59 5 eGFR if not 100 mL/min/{1 .73_m2} [facility] >59 5 creatinine, serum 0.68 mg/dL [facility] 0.57-1.00 5 urea nitrogen, blood 12 mg/dL [facility] 6-24 5 blood glucose, random 141 mg/dL [facility] 65-99 High HISTORY OF MEDICATION USE Medication Status Instructions Dates Provider Indications Com ments atorvastatin 40 mg tablet active TAKE 1 TABLET BY MOUTH EVERY DAY IN THE EVENING 04/17 Nathaniel Holder hydrochlorothiazide 12.5 mg tablet active Take 1 tablet by mouth once a day 03/21 Bridgette Paez hydrochlorothiazide 12.5 mg tablet completed TAKE 1 TABLET BY MOUTH EVERY DAY 08/03 - 03/21 Bridgette Paez clopidogrel 75 mg tablet active TAKE 1 TABLET BY MOUTH EVERY DAY 07/09 Bridgette Paez aspirin 81 mg tablet,delayed release (DR/EC) active TAKE 1 TABLET BY MOUTH EVERY DAY 09/23 Deb Corbin atorvastatin 40 mg tablet completed Take 1 tablet by mouth every evening - 04/17 Nathaniel Holder carvedilol 12.5 mg tablet active TAKE ONE TABLET BY MOUTH TWICE A DAY AFTER BREAKFAST AND DINNER 10/06 Colin clopidogrel 75 mg tablet completed Take 1 tablet by mouth once a day 04/10 - 07/09 Marcie Medina metformin 500 mg tablet completed 2 tablet by mouth twice a day - 09/29 Maura López BRILINTA 90 MG ORAL TABLET completed One tablet twice daily - 05/05 Gabriela Anne RN SPIRONOLACTONE 25 MG TABLET completed TAKE ONE TABLET BY MOUTH ONCE DAILY 09/27 - 07/11 Tonsha Figueroa Vasotec 20 mg tablet active 1 tablet by mouth once a day Maura López carvedilol 12.5 mg tablet completed Take 1 tablet by mouth twice a day 09/27 - 10/06 Jose Murphy RN atorvastatin 80 mg tablet completed Take 1 tablet by mouth every night 09/27 - Jose Murphy RN aspirin 81 mg tablet,delayed release (DR/EC) completed Take 1 tablet by mouth once a day 09/27 - 09/23 Marcie Medina JANUVIA 100 MG ORAL TABLET completed 1 tablet daily 05/05 - 09/30 Araseli Matos SOCIAL HISTORY Date Observation Value Provider smoking, year quit 2018 Roselia Leiva MD number of years as a smoker 40 a Roselia Leiva MD smoking history, tot al pack/day 0.5 Roselia Leiva MD cigarette use yes Roselia cesar MD smoking status Former smoker Roselia banda MD smoking, year quit 2018 Roselia Leiva MD number of years as a smoker 40 a Roselia Leiva MD smoking history, tot al pack/day 0.5 Roselia Leiva MD cigarette use yes Roselia cesar MD smoking status Former smoker Roselia banda MD social history reviewed E&M revi ewed - no changes required Roselia Leiva MD social history reviewed E&M revi ewed - no changes required Roselia Leiva MD social history E&M S moking History: Kay olson is a former smoker. Roselia Leiva MD social history reviewed E&M revi ewed - no changes required Roselia Leiva MD smoking, year quit 2018 Bridgette Resendiz carlos number of years as a smoker 40 a Bridgette Andersonopal smoking history, tot al pack/day 0.5 Bridgette Mullinsmickier cigarette use yes Bridgette Rodriguez [facility] smoking status Former smoker Bridgette mathissheldoner social history reviewed E&M revi ewed - no changes required Roselia Leiva MD social history E&M S moking History: Kay olson is a former smoker. Roselia Leiva MD social history reviewed E&M revi ewed - no changes required Roselia Leiva MD smoking status Former smoker Cassandra Shabnam social history E&M S moking History: Kay olson is a former smoker. Roselia Leiva MD social history reviewed E&M revi ewed - no changes required Rsoelia Leiva MD smoking, year quit 2019 Lubna Bu sby number of years as a smoker 40 a Lubna Bj smoking history, tot al pack/day 0.5 Lubna Bj cigarette use yes Lubna [place] smoking status Former smoker Lubna Lorenzo smoking, year quit 2018 Roselia Leiva MD number of years as a smoker 40 a Roselia Leiva MD smoking history, tot al pack/day 0.5 Roselia Leiva MD cigarette use yes Roselia cesar MD smoking status Former smoker Roselia banda MD social history E&M S moking History: Kay olson is a former smoker. Roselia Leiva MD social history reviewed E&M revi ewed - no changes required Roselia Leiva MD smoking status Former smoker Jorge Say dinh social history E&M S moking History: Kay olson is a former smoker. Jorge Kerr social history reviewed E&M revi ewed - no changes required Jorge Kerr smoking, year quit 2018 Tonsha Mo ss number of years as a smoker 40 a Tonsha Figueroa smoking history, tot al pack/day 0.5 Tonsha Figueroa cigarette use yes Tonsha Figueroa smoking, year quit 2018 Justine cisneroson-Torey number of years as a smoker 40 a Justine GriffinTorey smoking history, tot al pack/day 0.5 Justine Cole cigarette use yes Justine Pelaez smoking status Former smoker Justine Isha on-Torey social history reviewed E&M revi ewed - no changes required Justine Cole social history reviewed E&M revi ewed - no changes required Roselia Leiva MD social history E&M S moking History: Kay olson is a former smoker. Roselia Leiva MD smoking, year quit 2018 Austin I ngram number of years as a smoker 40 a Cristhian Lizama smoking history, tot al pack/day 0.5 Cristhian Lizama cigarette use yes Cristhian Lizama smoking status Former smoker Cristhian Moore am number of grandchildren Roselia Leiva MD social history E&M S moking History: Kay olson is a former smoker. Roselia Leiva MD social history reviewed E&M revi ewed - no changes required Roselia Leiva MD smoking history, tot al pack/day 0.5 Araseli Roenson number of years as a smoker 40 a AraseliChristina Roenson smoking, year quit 2018 AraseliChristina Roenson cigarette use yes Araseli Jayjay abigail smoking status Former smoker Araseli Sandovalson FUNCTIONAL STATUS Date Observation Value Provider HRA, CV Assess/Plan, Angina (inactive) Management Plan continue current therapy Roselia Leiva MD HRA, CV Assess/Plan, Angina (inactive) Management Plan continue current therapy Roselia Leiva MD HRA, CV Assess/Plan, Angina (inactive) Management Plan continue current therapy Roselia Leiva MD HRA, CV Assess/Plan, Angina (inactive) Management Plan continue current therapy Roselia Leiva MD HRA, CV Assess/Plan, Angina (inactive) Management Plan continue current therapy Roselia Leiva MD HRA, CV Assess/Plan, Angina (inactive) Management Plan continue current therapy Roselia Leiva MD HRA, CV Assess/Plan, Angina (inactive) Management Plan continue current therapy Roselia Leiva MD HRA, CV Assess/Plan, Angina (inactive) Management Plan continue current therapy Roselia Leiva MD HRA, CV Assess/Plan, Angina (inactive) Management Plan continue current therapy Roselia Leiva MD HRA, CV Assess/Plan, Angina (inactive) Management Plan continue current therapy Roselia Leiva MD FAMILY HISTORY Family Member Condition First Degree Blood Relative No Known Fam marleny History INSURANCE PROVIDERS Payer name Policy type / Coverage type Divya red republican ID [place] MED[employer] Medicare [id number] [facility] Medicaid 1 [id number] ADVANCE DIRECTIVES Name Date DISCUSSED - NO DECISION MADE TREATMENT PLAN Date Name Performer [id number],C, C ONCLUSIONS: 1 . Normal left ventricular systolic function. Normal left ventricular size. Normal left ventricular wall thickness. There is E to A w ave reversal consistent with impaired LV relaxation. E/E': 8.2. Left ventricular ejection fraction is measured at 65 %. 2 . Normal right ventricular size. Normal right ventricular systolic function. 3 . There is trace physiologic mitral valve regurgitation. 4 . There is trace physiologic tricuspid valve regurgitation. Roselia Leiva MD [id number],C, D APT 12 mo. RATHUR to LAD 03/01. Continues on Dapt Her updated medication list for this problem includes: Aspirin 81 Mg Tablet,delayed Release (dr/ec) (Aspirin) ..... Take 1 tablet by mouth every day Carvedilol 12.5 Mg Tablet (Carvedilol) ..... Take one tablet by mouth twice a day after breakfast and dinner Clopidogrel 75 Mg Tablet (Clopidogrel) ..... Take 1 tablet by mouth every day Vasotec 20 Mg Tablet (Enalapril maleate) ..... 1 tablet by mouth once a day Roselia Leiva MD [id number],C, O n ASA / Plavix. n o new sx for angina h ad recent echo done and stress in 2019. Needs repeat testing. Ran with her dog up a hill and did okay. November 13, 2022 N o new CP Roselia Leiva MD [id number],C,B Ps at home are in the 120s B P today: 168/100 P rior BP: 180/110 (08/03/2022) Labs Reviewed: C reat: 0.64 (12/24/2018) C hol: 111 (12/24/2018) HDL: 43 (12/24/2018) Her updated medication list for this problem includes: Aspirin 81 Mg Tablet,delayed Release (dr/ec) (Aspirin) ..... Take 1 tablet by mouth every day Carvedilol 12.5 Mg Tablet (Carvedilol) ..... Take one tablet by mouth twice a day after breakfast and dinner Hydrochlorothiazide 12.5 Mg Tablet (Hydrochlorothiazide) ..... Take 1 tablet by mouth every day Vasotec 20 Mg Tablet (Enalapril maleate) ..... 1 tablet by mouth once a day Roselia Leiva MD [id number],C, C ONCLUSIONS: 1 . Normal left ventricular systolic function. Normal left ventricular size. Normal left ventricular wall thickness. There is E to A w ave reversal consistent with impaired LV relaxation. E/E': 5.8 Left ventricular ejection fraction is measured at 55 %. 2 . Normal right ventricular size. Normal right ventricular systolic function. 3 . There is non-specific thickening of the mitral valve leaflets. Mild mitral valve regurgitation. E lectronically signed by Roselia Leiva MD on 05/11/2022 at 5:07 PM CONCLUSIONS: 1 . Normal sinus rhythm. Poor R wave progression V1-V3 Nonspecific ST-T abnormality. 2 . Normal Regadenoson ECG with no ischemic ST or T changes, following vasodilator stress. 3 . Normal left ventricle size. 4 . Left Ventricular Ejection Fraction is 55 % TID: 0.81. 5 . Normal myocardial perfusion imaging with no evidence of ischemia or scar. 6 . Attentuation artifacts noted. E lectronically Signed By: Aleksandra Navarro MD [facility] Roselia Leiva MD [id number],C, H er updated medication list for this problem includes: Aspirin 81 Mg Tablet,delayed Release (dr/ec) (Aspirin) ..... Take 1 tablet by mouth every day Vasotec 20 Mg Tablet (Enalapril maleate) ..... 1 tablet by mouth once a day Roselia Leiva MD [id number],C, A 1C was 6.3 H er updated medication list for this problem includes: Aspirin 81 Mg Tablet,delayed Release (dr/ec) (Aspirin) ..... Take 1 tablet by mouth every day Vasotec 20 Mg Tablet (Enalapril maleate) ..... 1 tablet by mouth once a day Roselia Leiva MD [id number],S,C ONCLUSIONS: 1 . Normal left ventricular systolic function. Normal left ventricular size. Normal left ventricular wall thickness. There is E to A w ave reversal consistent with impaired LV relaxation. E/E': 5.8 Left ventricular ejection fraction is measured at 55 %. 2 . Normal right ventricular size. Normal right ventricular systolic function. 3 . There is non-specific thickening of the mitral valve leaflets. Mild mitral valve regurgitation. E lectronically signed by Roselia Leiva MD on 05/11/2022 at 5:07 PM CONCLUSIONS: 1 . Normal sinus rhythm. Poor R wave progression V1-V3 Nonspecific [address]-T abnormality. 2 . Normal Regadenoson ECG with no ischemic ST or T changes, following vasodilator stress. 3 . Normal left ventricle size. 4 . Left Ventricular Ejection Fraction is 55 % TID: 0.81. 5 . Normal myocardial perfusion imaging with no evidence of ischemia or scar. 6 . Attentuation artifacts noted. E lectronically Signed By: Aleksandra Navarro MD [facility] Roselia Leiva MD [id number] M ay 2022 D iscussion of benefits for remote patient monitoring took place. Patient gives consent for remote monitoring of physiologic parameters including, but not limited to, weight, blood pressure, pulse oximetry, respiratory flow rate. BP today: 180/110 P rior BP: 134/80 (01/16/2022) Labs Reviewed: C reat: 0.64 (12/24/2018) C hol: 111 (12/24/2018) HDL: 43 (12/24/2018) Her updated medication list for this problem includes: Hydrochlorothiazide 12.5 Mg Tablet (Hydrochlorothiazide) ..... Take 1 tablet by mouth every day Carvedilol 12.5 Mg Tablet (Carvedilol) ..... Take one tablet by mouth twice a day after breakfast and dinner Aspirin 81 Mg Tablet,delayed Release (dr/ec) (Aspirin) ..... Take 1 tablet by mouth every day Vasotec 20 Mg Tablet (Enalapril maleate) ..... 1 tablet by mouth once a day Roselia Leiva MD [id number],C, O n ASA / Plavix. n o new sx for angina h ad recent echo done and stress in 2019. Needs repeat testing. Ran with her dog up a hill and did okay. Roselia Leiva MD [id number],S, N egative stress for ischemia. No new sx noted January 16, 2022 N o recent testing since 2019. Will arrange for stress. Roselia Leiva MD [id number],S,R eviewed that recently she had eaten meal with high Na content, BP was elevated at PCP office. Can add HCT if BPs run high in the future. Her updated medication list for this problem includes: Carvedilol 12.5 Mg Tablet (Carvedilol) ..... Take one tablet by mouth twice a day after breakfast and dinner Aspirin 81 Mg Tablet,delayed Release (dr/ec) (Aspirin) ..... Take 1 tablet by mouth every day Vasotec 20 Mg Tablet (Enalapril maleate) ..... 1 tablet by mouth once a day BP today: 134/80 P rior BP: 132/75 (10/17/2021) Labs Reviewed: C reat: 0.64 (12/24/2018) C hol: 111 (12/24/2018) HDL: 43 (12/24/2018) Roselia Leiva MD [id number],C, O n ASA / Plavix. n o new sx for angina h ad recent echo done and stress Roselia Leiva MD [id number],C,_ C ONCLUSIONS: 1 . Normal left ventricular systolic function. Normal left ventricular size. Normal left ventricular wall thickness. There is E to A w ave reversal consistent with impaired LV relaxation. E/E': 8.2. Left ventricular ejection fraction is measured at 65 %. 2 . Normal right ventricular size. Normal right ventricular systolic function. 3 . There is trace physiologic mitral valve regurgitation. 4 . There is trace physiologic tricuspid valve regurgitation. Roselia Leiva MD [id number],C,A 1C 6.6 H er updated medication list for this problem includes: Aspirin 81 Mg Tablet,delayed Release (dr/ec) (Aspirin) ..... Take 1 tablet by mouth every day Vasotec 20 Mg Tablet (Enalapril maleate) ..... 1 tablet by mouth once a day Roselia Leiva MD [id number],C, N egative stress for ischemia. No new sx noted Roselia Leiva MD [id number],C,E lectronically signed by Roselia Leiva MD on 12/06/2020 at 2:31 PM A ppended by Roselia Leiva MD on 12/06/2020 at 2:31 PM
C ONCLUSIONS: 1 . Normal left ventricular systolic function. Normal left ventricular size. Normal left ventricular wall thickness. There is E to A w ave reversal consistent with impaired LV relaxation. E/E': 8.2. Left ventricular ejection fraction is measured at 65 %. 2 . Normal right ventricular size. Normal right ventricular systolic function. 3 . There is trace physiologic mitral valve regurgitation. 4 . There is trace physiologic tricuspid valve regurgitation. E lectronically signed by Roselia Leiva MD on 12/06/2020 at 2:31 PM H er updated medication list for this problem includes: Carvedilol 12.5 Mg Tablet (Carvedilol) ..... Take one tablet by mouth twice a day after breakfast and dinner Clopidogrel 75 Mg Tablet (Clopidogrel) ..... Take 1 tablet by mouth once a day Vasotec 20 Mg Tablet (Enalapril maleate) ..... 1 tablet by mouth once a day Aspirin 81 Mg Tablet,delayed Release (dr/ec) (Aspirin) ..... Take 1 tablet by mouth once a day Roselia Leiva MD [id number],C, O n ASA / Plavix. n o new sx for angina h ad recent echo done and stress Roselia Leiva MD [id number],C, H er updated medication list for this problem includes: Carvedilol 12.5 Mg Tablet (Carvedilol) ..... Take one tablet by mouth twice a day after breakfast and dinner Vasotec 20 Mg Tablet (Enalapril maleate) ..... 1 tablet by mouth once a day Aspirin 81 Mg Tablet,delayed Release (dr/ec) (Aspirin) ..... Take 1 tablet by mouth once a day Roselia Leiva MD [id number],C,6 .5a1c and will recheck with pcp again H er updated medication list for this problem includes: Vasotec 20 Mg Tablet (Enalapril maleate) ..... 1 tablet by mouth once a day Aspirin 81 Mg Tablet,delayed Release (dr/ec) (Aspirin) ..... Take 1 tablet by mouth once a day Metformin 500 Mg Tablet (Metformin) ..... 2 tablet by mouth twice a day Roselia Leiva MD [id number],C, N o new Sx. N egative stress for ischemia. Roselia Leiva MD [id number],C, O n ASA / Plavix. Roselia Leiva MD [id number],C, B P today: 128/71 P rior BP: 124/80 (04/19/2020) Labs Reviewed: C reat: 0.64 (12/24/2018) C hol: 111 (12/24/2018) HDL: 43 (12/24/2018) Her updated medication list for this problem includes: Carvedilol 12.5 Mg Tablet (Carvedilol) ..... Take one tablet by mouth twice a day after breakfast and dinner Vasotec 20 Mg Tablet (Enalapril maleate) ..... 1 tablet by mouth once a day Aspirin 81 Mg Tablet,delayed Release (dr/ec) (Aspirin) ..... Take 1 tablet by mouth once a day Roselia Leiva MD [id number],C, N o new Sx. N egative stress for ischemia. Roselia Leiva MD [id number],C, D APT 12 mo. ARTHUR to LAD 1218 Roselia Leiva MD Cardiology: O n ASA / Plavix. n o new sx for angina h ad recent echo done and stress in 2019. Needs repeat testing. Ran with her dog up a hill and did okay. November 13, 2022 N o new CP Roselia Leiva MD Cardiology: D APT 12 mo. ARTHUR to LAD 18. Continues on Dapt n o bleeding on plavix. remains on plavix due to hx of DM, HLD and prior ND, no bleeding risks at present Roselia Leiva MD Cardiology: C ONCLUSIONS: 1 . Normal left ventricular systolic function. Normal left ventricular size. Normal left ventricular wall thickness. There is E to A w ave reversal consistent with impaired LV relaxation. E/E': 5.8 Left ventricular ejection fraction is measured at 55 %. 2 . Normal right ventricular size. Normal right ventricular systolic function. 3 . There is non-specific thickening of the mitral valve leaflets. Mild mitral valve regurgitation. E lectronically signed by Roselia Leiva MD on 05/11/2022 at 5:07 PM CONCLUSIONS: 1 . Normal sinus rhythm. Poor R wave progression V1-V3 Nons[address]-T abnormality. 2 . Normal Regadenoson ECG with no ischemic ST or T changes, following vasodilator stress. 3 . Normal left ventricle size. 4 . Left Ventricular Ejection Fraction is 55 % TID: 0.81. 5 . Normal myocardial perfusion imaging with no evidence of ischemia or scar. 6 . Attentuation artifacts noted. E lectronically Signed By: Aleksandra Navarro MD [facility] Roselia Leiva MD Cardiology: H er updated medication list for this problem includes: Aspirin 81 Mg Tablet,delayed Release (dr/ec) (Aspirin) ..... Take 1 tablet by mouth every day Hydrochlorothiazide 12.5 Mg Tablet (Hydrochlorothiazide) ..... Take 1 tablet by mouth once a day Carvedilol 12.5 Mg Tablet (Carvedilol) ..... Take one tablet by mouth twice a day after breakfast and dinner Vasotec 20 Mg Tablet (Enalapril maleate) ..... 1 tablet by mouth once a day BP today: 138/88 P rior BP: 161/98 (05/14/2023) Labs Reviewed: C reat: 0.64 (12/24/2018) C hol: 111 (12/24/2018) HDL: 43 (12/24/2018) LDL: 56 (12/24/2018) T (12/24/2018) Roselia Leiva MD Cardiology:CONCLUSIO NS: 1 . Normal sinus rhythm. Poor R wave progression V1-V3 N[address]-T abnormality. 2 . Normal Regadenoson ECG with no ischemic ST or T changes, following vasodilator stress. 3 . Normal left ventricle size. 4 . Left Ventricular Ejection Fraction is 55 % TID: 0.81. 5 . Normal myocardial perfusion imaging with no evidence of ischemia or scar. 6 . Attentuation artifacts noted. E lectronically Signed By: Aleksandra Navarro MD [facility] 2 13:52:18 MON[place] E lectronically Signed By: Socrates Leiva MD, [facility] CONCLUSIONS: 1 . Normal left ventricular systolic function. Normal left ventricular size. Normal left ventricular wall thickness. There is E to A w ave reversal consistent with impaired LV relaxation. E/E': 5.8 Left ventricular ejection fraction is measured at 55 %. 2 . Normal right ventricular size. Normal right ventricular systolic function. 3 . There is non-specific thickening of the mitral valve leaflets. Mild mitral valve regurgitation. E lectronically signed by Roselia Leiva MD on 05/11/2022 at 5:07 PM August 04, 2023 w ill screen for sleep apnea since she has MR, O rders: E KG ([id number]) Roselia Leiva MD Cardiology: G etting muscle aches at 80mg liptior w ill reduce to 40mg August 04, 2023 h as noted reduction in muscle pain on lipitor 40 mg cholesterol has not changed much Roselia Leiva MD Cardiology:A1c was 6.7 Roselia Leiva MD Cardiology: C ONCLUSIONS: 1 . Normal left ventricular systolic function. Normal left ventricular size. Normal left ventricular wall thickness. There is E to A w ave reversal consistent with impaired LV relaxation. E/E': 8.2. Left ventricular ejection fraction is measured at 65 %. 2 . Normal right ventricular size. Normal right ventricular systolic function. 3 . There is trace physiologic mitral valve regurgitation. 4 . There is trace physiologic tricuspid valve regurgitation. Roselia Leiva MD Cardiology: H er updated medication list for this problem includes: Hydrochlorothiazide 12.5 Mg Tablet (Hydrochlorothiazide) ..... Take 1 tablet by mouth once a day Aspirin 81 Mg Tablet,delayed Release (dr/ec) (Aspirin) ..... Take 1 tablet by mouth every day Carvedilol 12.5 Mg Tablet (Carvedilol) ..... Take one tablet by mouth twice a day after breakfast and dinner Vasotec 20 Mg Tablet (Enalapril maleate) ..... 1 tablet by mouth once a day B P at home 122/70 this morning B P today: 161/98 P rior BP: 168/100 (11/13/2022) Labs Reviewed: C reat: 0.64 (12/24/2018) C hol: 111 (12/24/2018) HDL: 43 (12/24/2018) LDL: 56 (12/24/2018) T (12/24/2018) Roselia Leiva MD Cardiology:Getting m uscle aches at 80mg liptior w ill reduce to 40mg Roselia Leiva MD Cardiology: C ONCLUSIONS: 1 . Normal left ventricular systolic function. Normal left ventricular size. Normal left ventricular wall thickness. There is E to A w ave reversal consistent with impaired LV relaxation. E/E': 5.8 Left ventricular ejection fraction is measured at 55 %. 2 . Normal right ventricular size. Normal right ventricular systolic function. 3 . There is non-specific thickening of the mitral valve leaflets. Mild mitral valve regurgitation. E lectronically signed by Roselia Leiva MD on 05/11/2022 at 5:07 PM CONCLUSIONS: 1 . Normal sinus rhythm. Poor R wave progression V1-V3 [address]-T abnormality. 2 . Normal Regadenoson ECG with no ischemic ST or T changes, following vasodilator stress. 3 . Normal left ventricle size. 4 . Left Ventricular Ejection Fraction is 55 % TID: 0.81. 5 . Normal myocardial perfusion imaging with no evidence of ischemia or scar. 6 . Attentuation artifacts noted. E lectronically Signed By: Aleksandra Navarro MD [facility] Roselia Leiva MD Cardiology: C ONCLUSIONS: 1 . Normal left ventricular systolic function. Normal left ventricular size. Normal left ventricular wall thickness. There is E to A w ave reversal consistent with impaired LV relaxation. E/E': 8.2. Left ventricular ejection fraction is measured at 65 %. 2 . Normal right ventricular size. Normal right ventricular systolic function. 3 . There is trace physiologic mitral valve regurgitation. 4 . There is trace physiologic tricuspid valve regurgitation. Roselia Leiva MD Cardiology: D APT 12 mo. ARTHUR to LAD 03/01. Continues on Dapt Her updated medication list for this problem includes: Aspirin 81 Mg Tablet,delayed Release (dr/ec) (Aspirin) ..... Take 1 tablet by mouth every day Carvedilol 12.5 Mg Tablet (Carvedilol) ..... Take one tablet by mouth twice a day after breakfast and dinner Clopidogrel 75 Mg Tablet (Clopidogrel) ..... Take 1 tablet by mouth every day Vasotec 20 Mg Tablet (Enalapril maleate) ..... 1 tablet by mouth once a day Roselia Leiva MD Cardiology: O n ASA / Plavix. n o new sx for angina h ad recent echo done and stress in 2019. Needs repeat testing. Ran with her dog up a hill and did okay. November 13, 2022 N o new CP Roselia Leiva MD Cardiology:BPs at [facility] are in the 120s B P today: 168/100 P rior BP: 180/110 (08/03/2022) Labs Reviewed: C reat: 0.64 (12/24/2018) C hol: 111 (12/24/2018) HDL: 43 (12/24/2018) H er updated medication list for this problem includes: Aspirin 81 Mg Tablet,delayed Release (dr/ec) (Aspirin) ..... Take 1 tablet by mouth every day Carvedilol 12.5 Mg Tablet (Carvedilol) ..... Take one tablet by mouth twice a day after breakfast and dinner Hydrochlorothiazide 12.5 Mg Tablet (Hydrochlorothiazide) ..... Take 1 tablet by mouth every day Vasotec 20 Mg Tablet (Enalapril maleate) ..... 1 tablet by mouth once a day Roselia Leiva MD Cardiology: C ONCLUSIONS: 1 . Normal left ventricular systolic function. Normal left ventricular size. Normal left ventricular wall thickness. There is E to A w ave reversal consistent with impaired LV relaxation. E/E': 5.8 Left ventricular ejection fraction is measured at 55 %. 2 . Normal right ventricular size. Normal right ventricular systolic function. 3 . There is non-specific thickening of the mitral valve leaflets. Mild mitral valve regurgitation. E lectronically signed by Roselia Leiva MD on 05/11/2022 at 5:07 PM CONCLUSIONS: 1 . Normal sinus rhythm. Poor R wave progression V1-V3 [address]-T abnormality. 2 . Normal Regadenoson ECG with no ischemic ST or T changes, following vasodilator stress. 3 . Normal left ventricle size. 4 . Left Ventricular Ejection Fraction is 55 % TID: 0.81. 5 . Normal myocardial perfusion imaging with no evidence of ischemia or scar. 6 . Attentuation artifacts noted. E lectronically Signed By: Aleksandra Navarro MD [facility] Roselia Leiva MD Cardiology: H er updated medication list for this problem includes: Aspirin 81 Mg Tablet,delayed Release (dr/ec) (Aspirin) ..... Take 1 tablet by mouth every day Vasotec 20 Mg Tablet (Enalapril maleate) ..... 1 tablet by mouth once a day Roselia Leiva MD Cardiology: A 1C was 6.3 H er updated medication list for this problem includes: Aspirin 81 Mg Tablet,delayed Release (dr/ec) (Aspirin) ..... Take 1 tablet by mouth every day Vasotec 20 Mg Tablet (Enalapril maleate) ..... 1 tablet by mouth once a day Roselia Leiva MD Cardiology:CONCLUSIO NS: 1 . Normal left ventricular systolic function. Normal left ventricular size. Normal left ventricular wall thickness. There is E to A w ave reversal consistent with impaired LV relaxation. E/E': 5.8 Left ventricular ejection fraction is measured at 55 %. 2 . Normal right ventricular size. Normal right ventricular systolic function. 3 . There is non-specific thickening of the mitral valve leaflets. Mild mitral valve regurgitation. E lectronically signed by Roselia Leiva MD on 05/11/2022 at 5:07 PM CONCLUSIONS: 1 . Normal sinus rhythm. Poor R wave progression V1-V[address]-T abnormality. 2 . Normal Regadenoson ECG with no ischemic ST or T changes, following vasodilator stress. 3 . Normal left ventricle size. 4 . Left Ventricular Ejection Fraction is 55 % TID: 0.81. 5 . Normal myocardial perfusion imaging with no evidence of ischemia or scar. 6 . Attentuation artifacts noted. E lectronically Signed By: Aleksandra Navarro MD [facility] Roselia Leiva MD Cardiology: Aleksandra ward 2022 D iscussion of benefits for remote patient monitoring took place. Patient gives consent for remote monitoring of physiologic parameters including, but not limited to, weight, blood pressure, pulse oximetry, respiratory flow rate. BP today: 180/110 P rior BP: 134/80 (01/16/2022) Labs Reviewed: C reat: 0.64 (12/24/2018) C hol: 111 (12/24/2018) HDL: 43 (12/24/2018) Her updated medication list for this problem includes: Hydrochlorothiazide 12.5 Mg Tablet (Hydrochlorothiazide) ..... Take 1 tablet by mouth every day Carvedilol 12.5 Mg Tablet (Carvedilol) ..... Take one tablet by mouth twice a day after breakfast and dinner Aspirin 81 Mg Tablet,delayed Release (dr/ec) (Aspirin) ..... Take 1 tablet by mouth every day Vasotec 20 Mg Tablet (Enalapril maleate) ..... 1 tablet by mouth once a day Roselia Leiva MD Cardiology: O n ASA / Plavix. n o new sx for angina h ad recent echo done and stress in 2019. Needs repeat testing. Ran with her dog up a hill and did okay. Roselia Leiva MD Cardiology: N egative stress for ischemia. No new sx noted January 16, 2022 N o recent testing since 2019. Will arrange for stress. Roselia Leiva MD Cardiology:Reviewed that recently she had eaten meal with high Na content, BP was elevated at PCP office. Can add HCT if BPs run high in the future. Her updated medication list for this problem includes: Carvedilol 12.5 Mg Tablet (Carvedilol) ..... Take one tablet by mouth twice a day after breakfast and dinner Aspirin 81 Mg Tablet,delayed Release (dr/ec) (Aspirin) ..... Take 1 tablet by mouth every day Vasotec 20 Mg Tablet (Enalapril maleate) ..... 1 tablet by mouth once a day BP today: 134/80 P rior BP: 132/75 (10/17/2021) Labs Reviewed: C reat: 0.64 (12/24/2018) C hol: 111 (12/24/2018) HDL: 43 (12/24/2018) Roselia Leiva MD Cardiology: O n ASA / Plavix. n o new sx for angina h ad recent echo done and stress Roselia Leiva MD Cardiology: C ONCLUSIONS: 1 . Normal left ventricular systolic function. Normal left ventricular size. Normal left ventricular wall thickness. There is E to A w ave reversal consistent with impaired LV relaxation. E/E': 8.2. Left ventricular ejection fraction is measured at 65 %. 2 . Normal right ventricular size. Normal right ventricular systolic function. 3 . There is trace physiologic mitral valve regurgitation. 4 . There is trace physiologic tricuspid valve regurgitation. Roselia Leiva MD Cardiology:A1C 6.6 H er updated medication list for this problem includes: Aspirin 81 Mg Tablet,delayed Release (dr/ec) (Aspirin) ..... Take 1 tablet by mouth every day Vasotec 20 Mg Tablet (Enalapril maleate) ..... 1 tablet by mouth once a day Roselia Leiva MD Cardiology: N egative stress for ischemia. No new sx noted Roselia Leiva MD Telehealth:Chai sims signed by Roselia Leiva MD on 12/06/2020 at 2:31 PM A ppended by Roselia Leiva MD on 12/06/2020 at 2:31 PM
C ONCLUSIONS: 1 . Normal left ventricular systolic function. Normal left ventricular size. Normal left ventricular wall thickness. There is E to A w ave reversal consistent with impaired LV relaxation. E/E': 8.2. Left ventricular ejection fraction is measured at 65 %. 2 . Normal right ventricular size. Normal right ventricular systolic function. 3 . There is trace physiologic mitral valve regurgitation. 4 . There is trace physiologic tricuspid valve regurgitation. E lectronically signed by Roselia Leiva MD on 12/06/2020 at 2:31 PM H er updated medication list for this problem includes: Carvedilol 12.5 Mg Tablet (Carvedilol) ..... Take one tablet by mouth twice a day after breakfast and dinner Clopidogrel 75 Mg Tablet (Clopidogrel) ..... Take 1 tablet by mouth once a day Vasotec 20 Mg Tablet (Enalapril maleate) ..... 1 tablet by mouth once a day Aspirin 81 Mg Tablet,delayed Release (dr/ec) (Aspirin) ..... Take 1 tablet by mouth once a day Roselia Leiva MD Telehealth: O n ASA / Plavix. n o new sx for angina h ad recent echo done and stress Roselia Leiva MD Telehealth: H er updated medication list for this problem includes: Carvedilol 12.5 Mg Tablet (Carvedilol) ..... Take one tablet by mouth twice a day after breakfast and dinner Vasotec 20 Mg Tablet (Enalapril maleate) ..... 1 tablet by mouth once a day Aspirin 81 Mg Tablet,delayed Release (dr/ec) (Aspirin) ..... Take 1 tablet by mouth once a day Roselia Leiva MD Telehealth:6.5a1c an d will recheck with pcp again H er updated medication list for this problem includes: Vasotec 20 Mg Tablet (Enalapril maleate) ..... 1 tablet by mouth once a day Aspirin 81 Mg Tablet,delayed Release (dr/ec) (Aspirin) ..... Take 1 tablet by mouth once a day Metformin 500 Mg Tablet (Metformin) ..... 2 tablet by mouth twice a day Roselia Leiva MD Telehealth: N o new Sx. N egative stress for ischemia. Roselia Leiva MD Cardiology: O n ASA / Plavix. Roselia Leiva MD Cardiology: B P today: 128/71 P rior BP: 124/80 (04/19/2020) Labs Reviewed: C reat: 0.64 (12/24/2018) C hol: 111 (12/24/2018) HDL: 43 (12/24/2018) Her updated medication list for this problem includes: Carvedilol 12.5 Mg Tablet (Carvedilol) ..... Take one tablet by mouth twice a day after breakfast and dinner Vasotec 20 Mg Tablet (Enalapril maleate) ..... 1 tablet by mouth once a day Aspirin 81 Mg Tablet,delayed Release (dr/ec) (Aspirin) ..... Take 1 tablet by mouth once a day Roselia Leiva MD Cardiology: N o new Sx. N egative stress for ischemia. Roselia Leiva MD Cardiology: D APT 12 mo. ARTHUR to LAD 12/18 Roselia Leiva MD Cardiology:Conclusio ns: 1 . <50% stenosis of the right ICA. 2 . No significant atherosclerosis seen in the left ICA. 3 . Vertebral flow is antegrade bilaterally. Roselia Leiva MD Cardiology:Conclusio ns: 1 . Normal left ventricular systolic function. Normal left ventricular size. Normal left ventricular wall t hickness. Normal left ventricular diastolic function. Normal E/E` 9.1. Left ventricular ejection fraction i s estimated at 60 %. 2 . Normal right ventricular size. Normal right ventricular systolic function. 3 . There is non-specific thickening of the mitral valve leaflets. There is trace physiologic mitral valve r egurgitation. Roselia Leiva MD Cardiology: D APT 12 mo. ARTHUR to LAD 12/18 Roselia Leiva MD Cardiology: O n ASA / Plavix. Roselia Leiva MD Cardiology: B P today: 124/80 P rior BP: 132/87 (07/12/2019) Labs Reviewed: C reat: 0.64 (12/24/2018) C hol: 111 (12/24/2018) HDL: 43 (12/24/2018) Roselia Leiva MD Cardiology:Would dis cuss with PCP regarding taking Ozempic and if felt to be a candidate, should be started on it. Roselia Leiva MD Cardiology: N o new Sx. N egative stress for ischemia. Roselia Leiva MD TeleHealth - BILLING :Normal left ventricular systolic function. Normal left ventricular size. Normal left ventricular wall t hickness. Normal left ventricular diastolic function. Normal E/E` 9.1. Left ventricular ejection fraction i s estimated at 60 % H er updated medication list for this problem includes: Clopidogrel 75 Mg Tablet (Clopidogrel bisulfate) ..... Take one tablet by mouth once daily Vasotec 20 Mg Oral Tablet (Enalapril maleate) ..... One tab daily Carvedilol 12.5 Mg Tablet (Carvedilol) ..... Take one tablet by mouth twice a day after breakfast and dinner Aspirin Ec 81 Mg Tablet (Aspirin) ..... Take one tablet by mouth once daily Roselia Leiva MD TeleHealth - BILLING : H er updated medication list for this problem includes: Metformin Hcl 500 Mg Oral Tablet (Metformin hcl) ..... 2 tabs twice daily Vasotec 20 Mg Oral Tablet (Enalapril maleate) ..... One tab daily Aspirin Ec 81 Mg Tablet (Aspirin) ..... Take one tablet by mouth once daily Roselia Leiva MD TeleHealth - BILLING :No new Sx. N egative stress for ischemia. Her updated medication list for this problem includes: Clopidogrel 75 Mg Tablet (Clopidogrel bisulfate) ..... Take one tablet by mouth once daily Vasotec 20 Mg Oral Tablet (Enalapril maleate) ..... One tab daily Carvedilol 12.5 Mg Tablet (Carvedilol) ..... Take one tablet by mouth twice a day after breakfast and dinner Aspirin Ec 81 Mg Tablet (Aspirin) ..... Take one tablet by mouth once daily Roselia Leiva MD Cardiology:On ASA / Plavix. Anthony Kerr Cardiology: B P today: 132/87 P rior BP: 118/70 (12/23/2018) Labs Reviewed: C reat: 0.64 (12/24/2018) C hol: 111 (12/24/2018) HDL: 43 (12/24/2018) The following medications were removed from the medication list: Spironolactone 25 Mg Tablet (Spironolactone) ..... Take one tablet by mouth once daily Her updated medication list for this problem includes: Vasotec 20 Mg Oral Tablet (Enalapril maleate) ..... One tab daily Carvedilol 12.5 Mg Tablet (Carvedilol) ..... Take one tablet by mouth twice a day after breakfast and dinner Aspirin Ec 81 Mg Tablet (Aspirin) ..... Take one tablet by mouth once daily Jorge Kerr Cardiology:Conclusio ns: 1 . <50% stenosis of the right ICA. 2 . No significant atherosclerosis seen in the left ICA. 3 . Vertebral flow is antegrade bilaterally. Jorge Kerr Cardiology:a1c 6.1 H er updated medication list for this problem includes: Metformin Hcl 500 Mg Oral Tablet (Metformin hcl) ..... 2 tabs twice daily Vasotec 10 Mg Oral Tablet (Enalapril maleate) ..... One tab daily Aspirin Ec 81 Mg Tablet (Aspirin) ..... Take one tablet by mouth once daily Roselia Leiva MD Cardiology:lvef 60% will remain on asa /plavix Roselia Leiva MD Cardiology: D APT 12 mo. ARTHUR to LAD 03/01 Her updated medication list for this problem includes: Brilinta 90 Mg Oral Tablet (Ticagrelor) ..... One tablet twice daily Vasotec 10 Mg Oral Tablet (Enalapril maleate) ..... One tab twice. daily Coreg 12.5 Mg Oral Tablet (Carvedilol) ..... One tab. twice daily Aspirin Adult Low Dose 81 Mg Oral Tablet Delayed Release (Aspirin) ..... One tab by mouth daily Roselia Leiva MD Cardiology:Conclusio ns: 1 . <50% stenosis of the right ICA. 2 . No significant atherosclerosis seen in the left ICA. 3 . Vertebral flow is antegrade bilaterally. Roselia Leiva MD Cardiology: H er updated medication list for this problem includes: Spironolactone 25 Mg Tablet (Spironolactone) ..... Take one tablet by mouth once daily Vasotec 10 Mg Oral Tablet (Enalapril maleate) ..... One tab daily Carvedilol 12.5 Mg Tablet (Carvedilol) ..... Take one tablet by mouth twice a day after breakfast and dinner Aspirin Ec 81 Mg Tablet (Aspirin) ..... Take one tablet by mouth once daily BP today: 118/70 P rior BP: 120/80 (06/17/2018) Labs Reviewed: C reat: 0.68 (03/19/2018) C hol: 116 (03/19/2018) HDL: 38 (03/19/2018) Roselia Leiva MD Cardiology: O rders: C omplete Echo (CPT-24400) C arotid Duplex Bilateral (CPT-36650) A rterial Duplex Bi-Lower EX (CPT-04350) Her updated medication list for this problem includes: Clopidogrel Bisulfate 75 Mg Oral Tablet (Clopidogrel bisulfate) ..... One tab daily Spironolactone 25 Mg Oral Tablet (Spironolactone) ..... One tab. daily Vasotec 10 Mg Oral Tablet (Enalapril maleate) ..... One tab twice. daily Coreg 12.5 Mg Oral Tablet (Carvedilol) ..... One tab. twice daily Aspirin Adult Low Dose 81 Mg Oral Tablet Delayed Release (Aspirin) ..... One tab by mouth daily Roselia Leiva MD Cardiology:Will chec k echo Roselia Leiva MD Cardiology: 1 . Selective coronary angiography and left ventriculography 2 . PTCA stenting of a high-grade 99% Left Anterior Descending Artery with ANTONETTE 1 flow reduced to a 0% r esidual with implantation of a 2.75 x 23 mm Xience drug eluting stent 3 . Intra-aortic balloon pump implantation the setting of the probable cardiogenic shock hypotension severe left v entricular systolic dysfunction 4 . Intracoronary nitroglycerin administration Orders: E KG (CPT-43790) C omplete Echo (CPT-42654) C arotid Duplex Bilateral (CPT-57352) A rterial Duplex Bi-Lower EX (CPT-92704) Her updated medication list for this problem includes: Clopidogrel Bisulfate 75 Mg Oral Tablet (Clopidogrel bisulfate) ..... One tab daily Vasotec 10 Mg Oral Tablet (Enalapril maleate) ..... One tab twice. daily Coreg 12.5 Mg Oral Tablet (Carvedilol) ..... One tab. twice daily Aspirin Adult Low Dose 81 Mg Oral Tablet Delayed Release (Aspirin) ..... One tab by mouth daily Roselia Leiva MD Cardiology:Well cont rolled. B P today: 120/80 Labs Reviewed: C reat: 0.68 (03/19/2018) C hol: 116 (03/19/2018) HDL: 38 (03/19/2018) Her updated medication list for this problem includes: Spironolactone 25 Mg Oral Tablet (Spironolactone) ..... One tab. daily Vasotec 10 Mg Oral Tablet (Enalapril maleate) ..... One tab twice. daily Coreg 12.5 Mg Oral Tablet (Carvedilol) ..... One tab. twice daily Aspirin Adult Low Dose 81 Mg Oral Tablet Delayed Release (Aspirin) ..... One tab by mouth daily Roselia Leiva MD Cardiology:EF 45%. C ont. medrx. H er updated medication list for this problem includes: Brilinta 90 Mg Oral Tablet (Ticagrelor) ..... One tablet twice daily Spironolactone 25 Mg Oral Tablet (Spironolactone) ..... One tab. daily Vasotec 10 Mg Oral Tablet (Enalapril maleate) ..... One tab twice. daily Coreg 12.5 Mg Oral Tablet (Carvedilol) ..... One tab. twice daily Aspirin Adult Low Dose 81 Mg Oral Tablet Delayed Release (Aspirin) ..... One tab by mouth daily Roselia Leiva MD Cardiology:DAPT 12 m o. Her updated medication list for this problem includes: Brilinta 90 Mg Oral Tablet (Ticagrelor) ..... One tablet twice daily Vasotec 10 Mg Oral Tablet (Enalapril maleate) ..... One tab twice. daily Coreg 12.5 Mg Oral Tablet (Carvedilol) ..... One tab. twice daily Aspirin Adult Low Dose 81 Mg Oral Tablet Delayed Release (Aspirin) ..... One tab by mouth daily Roselia Leiva MD Cardiology:1. Select mikel coronary angiography and left ventriculography 2 . PTCA stenting of a high-grade 99% Left Anterior Descending Artery with ANTONETTE 1 flow reduced to a 0% r esidual with implantation of a 2.75 x 23 mm Xience drug eluting stent 3 . Intra-aortic balloon pump implantation the setting of the probable cardiogenic shock hypotension severe left v entricular systolic dysfunction 4 . Intracoronary nitroglycerin administration Roselia Leiva MD Cardiology: H er updated medication list for this problem includes: Spironolactone 25 Mg Oral Tablet (Spironolactone) ..... One tab. daily Vasotec 10 Mg Oral Tablet (Enalapril maleate) ..... One tab twice. daily Coreg 12.5 Mg Oral Tablet (Carvedilol) ..... One tab. twice daily Aspirin Adult Low Dose 81 Mg Oral Tablet Delayed Release (Aspirin) ..... One tab by mouth daily Roselia Leiva MD Date Name Auto-CPAP 6cm H2O -1 8cm H2O Sleep Study Home EKG LIPID PANEL COMPREHENSIVE METABO LIC PANEL, W/EGFR HEMOGLOBIN A1c PROBNP, N TERMINAL CRP, high sensitivit y Lipoprotein (a) LIPID PANEL COMPREHENSIVE METABO LIC PANEL, W/EGFR RPM (remote patient monitoring) Complete Echo Stress Exercise Card iolite Sleep Study - split night Complete Echo Carotid Duplex Bilat eral Complete Echo Stress Exercise Card iolite HEMOGLOBIN A1c COMPREHENSIVE METABO LIC PANEL, W/EGFR LIPID PANEL Arterial Duplex Bi-L ower EX Carotid Duplex Bilat eral Complete Echo PROBNP, N TERMINAL URINALYSIS, RANDOM, MICROALB/CREATININE HEMOGLOBIN A1c B TYPE NATRIURETIC P EPTIDE (BNP) LIPID PANEL COMPREHENSIVE METABO LIC PANEL, W/EGFR Carotid Duplex Bilat eral HISTORY OF PROCEDURES Procedure Date Procedure Name Provider Procedure Notes S tatus EKG Roselia Leiva MD compl eted EKG Roselia Leiva MD compl eted EKG Roselia Leiva MD compl eted EKG Roselia Leiva MD compl eted EKG Roselia Leiva MD compl eted EKG Roselia Leiva MD compl eted EKG Roselia Leiva MD compl eted Cardiolite, 2 units Roselia Leiva MD completed SPECT Images Roselia Leiva MD com pleted Stress EKG Roselia Leiva MD compl eted EKG Roselia Leiva MD compl eted EKG Roselia Leiva MD compl eted JONYG Roselia Leiva MD compl eted EKG Roselia Leiva MD compl eted
[2024-06-19 08:26] LABS: Alanine Aminotransferase 21 U/L (6-35); Albumin Level 4.4 g/dL (3.5-5.1); Alkaline Phosphatase 43 U/L (38-126); Anion Gap 10 mmol/L (4-12); Aspartate Amino Transferase 23 U/L (14-36); Bilirubin,Total 0.4 mg/dL (0.2-1.3); Blood Urea Nitrogen 14 mg/dL (7-17); Calcium 9.5 mg/dL (8.4-10.2); Carbon Dioxide 25 mmol/L (22-30); Chloride 99 mmol/L (98-107); Estimated Glomerular Filt Rate > 60; Glucose 133 mg/dL (65-110); Potassium 4.2 mmol/L (3.4-5.0); Sodium 134 mmol/L (137-145)
[2024-06-19 08:57] LABS: Hemoglobin A1C 6.5 % (<5.7)
== END 2024-06-19 06:58 | disposition home or self-care (01) ==
PROVIDERS: PCP Family Medicine; Visit Provider Family Medicine
DX: E11.9 Type 2 diabetes mellitus without complications (principal)
CPT/HCPCS: 36415; 80053; 83036